=== PATIENT | female | born 1985 | race Caucasian/White ===

== ENCOUNTER 2017-08-21 18:47 | Emergency (ER) | payer OTHER ==
[2017-08-21 18:56] VITALS: BP 141/85; PULSE 71; TEMP 98.4; BMI 30.7
--- NOTE | 2017-08-21 18:59 | PDOC ---
Rapid Medical Evaluation Chief Complaint: Injury Time Seen by Provider: 08/21/17 18:54 Medical Evaluation: Allergies Allergy/AdvReac Type Severity Reaction Status Date / Time Penicillins Allergy Verified 08/21/17 18:53 shellfish derived Allergy Verified 08/21/17 18:53 08/21/17 18:55 I have performed a brief in-person evaluation of this patient. The patient presents with a chief complaint of: Right ankle pain after walking on a pothole Pertinent physical exam findings: Right lat malleolus pain I have ordered the following: right ankle xray. Pt says she is not and will sign The patient will proceed to the ED for further evaluation.
--- NOTE | 2017-08-21 19:56 | PDOC ---
History of Present Illness - General Chief Complaint: Injury Stated Complaint: FALL INJURY, RIGHT ANKLE Time Seen by Provider: 08/21/17 18:54 History Source: Patient Exam Limitations: No Limitations - History of Present Illness Initial Comments: 08/21/17 19:51 This is a 32-year-old woman also limited past medical history presents to the ER with right ankle pain status post stepping in a pothole wearing high heels on Monday evening. Patient states she was at a local establishment and when she left it was dark and was unable to see the street in front of her. She stepped into a pot hole twisting her right ankle. Patient is unsure of whether it was an inversion or eversion injury. Patient's been able to walk on the ankle since the initial injury. Past History - Past Medical History Allergies/Adverse Reactions: Allergies Allergy/AdvReac Type Severity Reaction Status Date / Time Penicillins Allergy Verified 08/21/17 18:53 shellfish derived Allergy Verified 08/21/17 18:53 Home Medications: Ambulatory Orders Flonase - 08/21/17 Zyrtec - 08/21/17 COPD: No - Suicide/Smoking/Psychosocial Hx Smoking History: Never smoked Have you smoked in the past 12 months: No Information on smoking cessation initiated: No Hx Alcohol Use: No Drug/Substance Use Hx: No Substance Use Type: None Review of Systems - Review of Systems Able to Perform ROS?: Yes Is the patient limited Mohawk proficient: No Constitutional: No: Symptoms Reported HEENTM: No: Symptoms Reported Respiratory: No: Symptoms reported Cardiac (ROS): No: Symptoms Reported ABD/GI: No: Symptoms Reported : No: Symptoms Reported Musculoskeletal: Yes: See HPI Integumentary: No: Symptoms Reported Neurological: No: Symptoms reported Endocrine: No: Symptoms Reported *Physical Exam - Vital Signs Last Vital Signs Temp Pulse Resp BP Pulse Ox 98.4 F 71 18 141/85 100 08/21/17 18:53 08/21/17 18:53 08/21/17 18:53 08/21/17 18:53 08/21/17 18:53 - Physical Exam General Appearance: Yes: Appropriately Dressed. No: Apparent Distress HEENT: positive: Normal ENT Inspection Neck: positive: Trachea midline, Supple Respiratory/Chest: positive: Lungs Clear, Normal Breath Sounds. negative: Respiratory Distress, Accessory Muscle Use Cardiovascular: positive: Regular Rhythm, Regular Rate. negative: Murmur Vascular Pulses: Dorsalis-Pedis (R): 2+, Doralis-Pedis (L): 2+ Gastrointestinal/Abdominal: positive: Normal Bowel Sounds, Soft. negative: Tender Musculoskeletal: positive: Normal Inspection. negative: CVA Tenderness Extremity: positive: Normal Capillary Refill, Normal Inspection, Tender ( Tenderness over lateral malleolus). negative: Normal Range of Motion (Unable to rotate right ankle medially) Integumentary: positive: Normal Color, Dry, Warm Neurologic: positive: Alert, Normal Response, Motor Strength /5 Medical Decision Making - Medical Decision Making 08/21/17 19:55 A/P: 32-year-old woman without medical history with right ankle pain for 3 days Swelling appreciated to the dorsum of the left foot. 2+ DP pulses Tender over lateral malleolus No tenderness to navicular or base of the fifth metatarsal X-rays, reassess 08/21/17 21:39 X-rays read by me: No fractures noted. I will discharge the patient home *DC/Admit/Observation/Transfer Diagnosis at time of Disposition: Right ankle sprain Qualifiers: Encounter type: initial encounter Involved ligament of ankle: unspecified ligament Qualified Code(s): S93.401A - Sprain of unspecified ligament of right ankle, initial encounter - Discharge Dispostion Disposition: HOME Condition at time of disposition: Stable - Referrals Referrals: Savage Carson MD [Staff Physician] - - Patient Instructions Additional Instructions: Take Tylenol or Motrin as needed for pain. Follow manufacturers instructions for appropriate dosage. Try not to walk or bear weight on your right ankle as much as possible for the next 3 days. Apply ice for 20 minutes and removed for at least 20 minutes before reapplying the ice. Keep Luis wrap on your ankle as much as possible to help decrease some of the swelling control pain. Whenever possible keep your foot elevated to decrease swelling to your ankle. You've been given the number for an orthopedist. If symptoms do not resolve within the next 7 days call the orthopedist for further evaluation. Return to emergency department for discoloration of the foot, numbness or tingling to the foot, worsening pain, or any other concerns. Thank you very much for choosing us to provide your emergent healthcare needs. - Post Discharge Activity
== END 2017-08-21 21:48 | disposition home or self-care (01) ==
LOC: JERFT 18:47
DX: S93.401A Sprain of unspecified ligament of right ankle, initial encounter (principal); W17.89XA Other fall from one level to another, initial encounter; Y93.01 Activity, walking, marching and hiking; Y92.414 Local residential or business street as the place of occurrence of the external cause; Y99.8 Other external cause status
CPT/HCPCS: 73610-TC-RT-FY; 99281-25